=== PATIENT | male | born 1955 | race Caucasian/White ===

== ENCOUNTER 2017-12-14 17:39 | Inpatient (IN) ==
--- NOTE | 2017-12-14 17:48 | ED ---
HPI General Stated Complaint: Transfer for FH Time Seen by Provider: 12/14/17 17:42 Source: EMS Mode of arrival: EMS Related Data Allergies Allergy/AdvReac Type Severity Reaction Status Date / Time No Known Allergies Allergy Unverified 12/14/17 17:43 Review of Systems ROS Unobtainable ROS Unobtainable: unobtainable due to mental status PMFSH History History Provided By: Family Member Medical History Medical History Patient denies medical problems (Acute) Surgical History Surgical History No history of previous surgery (Acute) Discharge Plan Physicians Team ED Provider: Galindo Thomas ED Midlevel Provider: Jed Perry Status ED Status: With Doctor
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
[2017-12-14] MEDS ORDERED: HYDROmorphone PF Inj 0.5 MG/0.5 ML Syringe IV.PUSH PRN (18:40)
[2017-12-14] MEDS ORDERED: HYDROmorphone PF Inj 2 MG/ML Vial IV.PUSH PRN ×2 (18:45→21:30)
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
[2017-12-14 19:06] LABS: Baso # (Auto) 0.1 th/mm3 (0.0-0.2); Baso % (Auto) 0.9 % (0.0-2.0); Eos # (Auto) 0.2 th/mm3 (0.0-0.4); Eos % (Auto) 1.5 % (0.0-4.0); Hemoglobin 14.3 gm/dL (13.0-17.0); Lymph % (Auto) 17.5 % (9.0-44.0); Mean Corpuscular HGB Conc 33.9 % (32.0-36.0); Mean Corpuscular Hemoglobin 33.8 pg (27.0-34.0); Mean Corpuscular Volume 99.7 fL (80.0-100.0); Mean Platelet Volume 8.9 fL (7.0-11.0); Mono # (Auto) 0.9 th/mm3 (0.0-0.9); Mono % (Auto) 8.1 % (0.0-8.0); Neut # (Auto) 8.1 th/mm3 (1.8-7.7); Platelet Count 226 th/mm3 (150-450); Red Blood Count 4.21 mil/mm3 (4.50-5.90); Red Cell Distribution Width 14.1 % (11.6-17.2); White Blood Count 11.3 th/mm3 (4.0-11.0)
[2017-12-14 19:36] LABS: Alanine Aminotransferase 28 U/L (12-78)
[2017-12-14 19:40] LABS: Alkaline Phosphatase 55 U/L (45-117); Total Protein 7.6 g/dL (6.4-8.2); Troponin I 0.02 ng/mL (0.02-0.05)
[2017-12-14 19:43] LABS: Albumin 3.7 g/dL (3.4-5.0); Anion Gap 6 meq/L (5-15); Aspartate Aminotransferase 37 U/L (15-37); Blood Urea Nitrogen 14 mg/dL (7-18); Calcium 8.8 mg/dL (8.5-10.1); Carbon Dioxide 28.7 meq/L (21.0-32.0); Chloride 103 meq/L (98-107); Glomerular Filtration Rate 85 mL/min (>89); Glucose,Random 85 mg/dL (74-106); Sodium 138 meq/L (136-145)
[2017-12-14 19:44] LABS: Potassium 4.8 meq/L (3.5-5.1)
[2017-12-14 20:16] LABS: Activated Partial Thrombo Time 27.7 sec (24.3-30.1); INR 1.1 Ratio; Prothrombin Time 10.7 sec (9.8-11.6)
[2017-12-14] MEDS ORDERED: Docusate Sodium 100 MG Capsule PO SCH (21:00)
[2017-12-14] MEDS ORDERED: Chlorhexidine Gluconate 2% 1 Pack (2 Cloths) TOPICAL ONE (21:18)
[2017-12-14] MEDS ORDERED: Metoprolol Tartrate 25 MG Tablet PO ONE (21:18)
[2017-12-14] MEDS ORDERED: Sodium Chlor 0.9% Inj 500 ML IV.SIG SCH (22:00)
[2017-12-15] MEDS ORDERED: Chlorhexidine Gluconate 2% 1 Pack (2 Cloths) TOPICAL PRN (04:00)
[2017-12-15] MEDS ORDERED: Chlorhexidine Gluconate 2% 1 Pack (2 Cloths) TOPICAL SCH (04:00)
[2017-12-15 05:36] LABS: Baso # (Auto) 0.1 th/mm3 (0.0-0.2); Baso % (Auto) 0.8 % (0.0-2.0); Eos # (Auto) 0.1 th/mm3 (0.0-0.4); Eos % (Auto) 1.1 % (0.0-4.0); Hematocrit 38.5 % (39.0-51.0); Hemoglobin 12.7 gm/dL (13.0-17.0); Lymph # (Auto) 1.1 th/mm3 (1.0-4.8); Lymph % (Auto) 14.2 % (9.0-44.0); Mean Corpuscular HGB Conc 33.1 % (32.0-36.0); Mean Corpuscular Hemoglobin 33.6 pg (27.0-34.0); Mean Corpuscular Volume 101.7 fL (80.0-100.0); Mean Platelet Volume 8.4 fL (7.0-11.0); Mono # (Auto) 0.9 th/mm3 (0.0-0.9); Mono % (Auto) 11.6 % (0.0-8.0); Neut # (Auto) 5.5 th/mm3 (1.8-7.7); Neut % (Auto) 72.3 % (16.0-70.0); Platelet Count 184 th/mm3 (150-450); Red Blood Count 3.79 mil/mm3 (4.50-5.90); Red Cell Distribution Width 14.2 % (11.6-17.2); White Blood Count 7.6 th/mm3 (4.0-11.0)
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
[2017-12-15 06:21] LABS: Anion Gap 7 meq/L (5-15); Blood Urea Nitrogen 12 mg/dL (7-18); Calcium 8.6 mg/dL (8.5-10.1); Carbon Dioxide 30.9 meq/L (21.0-32.0); Chloride 103 meq/L (98-107); Glomerular Filtration Rate Greater Than 89 mL/min (>89); Glucose,Random 121 mg/dL (74-106); Potassium 3.9 meq/L (3.5-5.1); Sodium 141 meq/L (136-145)
[2017-12-15] MEDS ORDERED: Morphine Inj 4 MG/ML Vial IV.PUSH PRN (06:26)
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
[2017-12-15] MEDS ORDERED: Clindamycin Inj 600 MG/4 ML Vial ONE (07:26)
[2017-12-15] MEDS ORDERED: Phenylephrine/NS 1000 MCG/10ML Syringe IV.PUSH ONE (07:45)
[2017-12-15] MEDS ORDERED: Glycopyrrolate Inj 1 MG/5 ML Syringe IV.PUSH ONE (07:45)
[2017-12-15] MEDS ORDERED: Lidocaine PF 1% Inj 5 ML Syringe INFILTRATN ONE (07:45)
[2017-12-15] MEDS ORDERED: Neostigmine Inj 5 MG/5 ML Syringe IV.PUSH ONE (07:45)
[2017-12-15] MEDS ORDERED: Post-op Orders (for Pharmacy) OTHER STA (08:47)
--- NOTE | 2017-12-15 08:52 | P.OP ---
- Preoperative Diagnosis (1) Closed fracture of left fibula and tibia Date of procedure: 12/15/17 Procedure: Left tibia reduction and intramedullary nail fixation Anesthesia: GETA Surgeon: Walter Deras MD Roto Rooter Operator: GHANSHYAM Paniagua PA-C The surgical procedure was assisted by my physician senior agricultural assistant. My P.A. presence was necessary throughout this case for the manipulation and positioning of the surgical extremity. My P.A. was assisting me throughout the duration of this procedure. The skill set of a physician senior agricultural assistant was medically necessary to complete this procedure. During the surgical case the information technology associate was working at the back table and the physician senior agricultural assistant was directly assisting me. Operation and Findings: Implants: ITS [10]mm x [375]mm tibial nail Plan of activity: Nonweightbearing Patient was seen and examined preoperatively. An informed consent was obtained from patient after detailed discussion of risk and benefits. Risks of surgery include bleeding, infection, painful hardware, nonunion, malunion, leg length discrepancy, need for hardware removal, and medical complications associated with anesthesia including blood clots, stroke, heart attack, and were discussed. Operative site was marked. Patient was brought to the operating room placed on or table. Patient received IV antibiotics and was given IV sedation GETA. Operative leg was prepped with alcohol Hibiclens and draped in usual sterile fashion. Timeout procedure was performed Procedure began with reduction of fracture. The fracture was visualized under fluoroscopy. There appeared to be a vertical split down to the articular surface. The fracture was held reduced with fracture tenaculums. 2 4.0 candid screws were placed from anterior to posterior. Good compression was obtained. Traction was now applied. The fracture was manipulated and reduced. There was comminution of the fracture. Next a 3 cm incision was made proximal to the patella. Quadriceps tendon was split in line with fibers. Cannulas were placed in the patellofemoral joint to protect the articular surface at all times. A guidepin was placed into the tibia and advanced in the tibial canal. Fluoroscopy was used to confirm appropriate guidepin placement. An opening reamer was used to open the tibial canal. A ball-tipped guidewire was advanced down the tibial canal. Guidepin was passed across the fracture site into the center of the distal tibia. Fluoroscopy confirmed guidepin placement. The nail length was now measured. The fracture was now held in a reduced position and the canal was reamed. The canal was reamed up to appropriate size. A tibia nail was now selected. Next the nail was fully seated. Using perfect benton technique 4 distal interlocking screws were placed. Using the insertion handle as a guide 1 proximal interlocking screw was placed. Fluoroscopy confirmed excellent of fracture with well-placed hardware. Incisions and the knee joint were thoroughly irrigated with sterile saline. Fascia was closed with #1 Vicryl, subcutaneous tissues closed with 3-0 Vicryl and skin was closed with rosy. Sterile dressings were applied. Patient was awakened and transferred to recovery in stable condition.
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
[2017-12-15] MEDS ORDERED: Senna/Docusate Sodium 8.6/50 MG Tablet PO SCH (09:00)
[2017-12-15] MEDS ORDERED: Vancomycin Inj 1 GM/200 ML PIGGYBACK IV.SIG SCH (09:00)
[2017-12-15] MEDS ORDERED: fentaNYL Citrate Inj 100 MCG/2 ML Ampul ONE (09:20)
[2017-12-15] MEDS ORDERED: *morphine SULFATE 4 MG/ML PERIprocedure ONLY ONE (09:27)
[2017-12-15] MEDS: Lidocaine 5% Patch T-DERMAL SCH (11:42)
[2017-12-15] MEDS: Senna/Docusate Sodium 8.6/50 MG Tablet PO SCH ×2 (11:43→20:27)
[2017-12-15] MEDS: Calcium/Vitamin D 250/125 MG Tablet PO SCH ×3 (11:43→18:16)
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
--- NOTE | 2017-12-15 19:55 | XR ---
EXAM DATE: 12/15/2017 9:09 AM EDT AGE/SEX: 62 years / Male INDICATIONS: ORIF LT TIB. TRAUMA. CLINICAL DATA: This is the patient's initial encounter. Patient reports that signs and symptoms have been present for 1 day and indicates a pain score of Nonresponsive. MEDICAL/SURGICAL HISTORY: Non-responsive. Non-responsive. COMPARISON: No prior exams available for comparison. FINDINGS: 4 intraoperative spot images of the tibia and fibula. Tibia and fibula fractures are seen. Intramedul martha christofer and multiple transfixing screws seen in the tibia. Alignment is near-anatomic. CONCLUSION: Intraoperative images showing internal fixation hardware in place across tibia fracture. Fibular frac ture also noted. Electronically signed by: King Westfall MD 12/15/2017 7:53 PM EDT
[2017-12-15] MEDS: Vancomycin Inj 1,000 MG in Sodium Chlor 0.9% Inj 250 ML IV.SIG SCH (20:27)
--- NOTE | 2017-12-15 22:11 | ECG ---
Date Performed: 12/14/2017 Time Performed: 18:47:49 PTAGE: 62 years EKG: Sinus rhythm NORMAL ECG NO PREVIOUS TRACING DOCTOR: Jessica Bullard Interpretating Date/Time 12/15/2017 22:08:35
[2017-12-15] MEDS: Morphine Inj 4 MG/ML Vial IV.PUSH PRN (23:59)
[2017-12-16 04:48] LABS: Baso % (Auto) 0.4 % (0.0-2.0); Eos # (Auto) 0.1 th/mm3 (0.0-0.4); Eos % (Auto) 0.5 % (0.0-4.0); Hematocrit 37.7 % (39.0-51.0); Hemoglobin 12.6 gm/dL (13.0-17.0); Lymph # (Auto) 1.6 th/mm3 (1.0-4.8); Lymph % (Auto) 12.8 % (9.0-44.0); Mean Corpuscular HGB Conc 33.4 % (32.0-36.0); Mean Corpuscular Hemoglobin 33.9 pg (27.0-34.0); Mean Corpuscular Volume 101.6 fL (80.0-100.0); Mean Platelet Volume 8.2 fL (7.0-11.0); Mono # (Auto) 1.5 th/mm3 (0.0-0.9); Mono % (Auto) 12.5 % (0.0-8.0); Neut % (Auto) 73.8 % (16.0-70.0); Platelet Count 180 th/mm3 (150-450); Red Blood Count 3.71 mil/mm3 (4.50-5.90); White Blood Count 12.2 th/mm3 (4.0-11.0)
[2017-12-16 05:10] LABS: Anion Gap 7 meq/L (5-15); Blood Urea Nitrogen 11 mg/dL (7-18); Calcium 8.6 mg/dL (8.5-10.1); Carbon Dioxide 28.3 meq/L (21.0-32.0); Chloride 103 meq/L (98-107); Glomerular Filtration Rate Greater Than 89 mL/min (>89); Glucose,Random 114 mg/dL (74-106); Potassium 3.7 meq/L (3.5-5.1); Sodium 138 meq/L (136-145)
--- NOTE | 2017-12-16 06:59 | P.PNOP ---
Subjective Interval history: Comfortably in bed no new complaints. Physical Exam Vital signs: Vital Signs 12/15/17 09:15 12/15/17 09:30 12/15/17 09:50 Temperature 97.2 F L 97.3 F L 96.8 F L Pulse Rate 62 63 60 Respiratory Rate 15 16 16 Blood Pressure 118/67 120/60 147/70 H Pulse Oximetry 100 100 97 12/15/17 10:13 12/15/17 12:00 12/15/17 15:30 Temperature 97.8 F Pulse Rate 56 L 70 Respiratory Rate 16 18 20 Blood Pressure 145/70 H Pulse Oximetry 95 97 12/15/17 16:03 12/15/17 20:00 12/15/17 21:33 Temperature 98.5 F Pulse Rate 80 76 82 Respiratory Rate 18 18 16 Blood Pressure 154/72 H Pulse Oximetry 96 97 12/16/17 00:00 12/16/17 03:27 12/16/17 04:00 Temperature 97.9 F 97.9 F Pulse Rate 73 73 86 Respiratory Rate 18 18 18 Blood Pressure 176/78 H 173/79 H Pulse Oximetry 98 99 Intake & Output 12/15/17 12/15/17 12/16/17 06:59 18:59 06:59 Intake Total 1275 / 1275 1260 / 1260 930 / 930 Output Total 700 / 700 1150 / 1150 Balance 575 / 575 110 / 110 930 / 930 Weight 58.967 kg 58.967 kg Intake: IV 1200 / 1200 250 / 250 LR 1000 mL Inj 1,000 ML @ 100 1000 / 1000 mls/hr IV.CONT .Q10H [facility] Rx#: [id number] Ofirmev Inj 1,000 mg In 100 ml 200 / 200 @ 400 mls/hr IV.SIG Q6H [facility] Rx# :[id number] Vancomycin Inj 1,000 MG In NS 250 / 250 Inj 250 ML @ 250 mls/hr IV.SIG Q12H [facility] Rx#:[id number] Oral 75 / 75 960 / 960 680 / 680 Anesthesia Amount 300 / 300 Output: Urine 700 / 700 1100 / 1100 Estimated Blood Loss 50 / 50 Other: # Voids 970 Date of Last Bowel Movement 12/14/17 12/14/17 12/14/17 Narrative: Left lower extremity: No pain with hip range of motion. Clean dry dressings intact. Splint intact. Distally intact sensation with active movement of toes. Good capillary refills Results - Labs CBC & Chem 7: 12/16/17 04:23 12/16/17 04:23 Laboratory Results - last 24 hr 12/16/17 12/16/17 04:23 04:23 WBC 12.2 H RBC 3.71 L Hgb 12.6 L Hct 37.7 L MCV 101.6 H MCH 33.9 MCHC 33.4 RDW 14.0 Plt Count 180 MPV 8.2 Neut % (Auto) 73.8 H Lymph % (Auto) 12.8 [place] % (Auto) 12.5 H Eos % (Auto) 0.5 Baso % (Auto) 0.4 Neut # (Auto) 9.0 H Lymph # (Auto) 1.6 [place] # (Auto) 1.5 H Eos # (Auto) 0.1 Baso # (Auto) 0.0 WBC Differential . Differential Comment Auto diff final Sodium 138 Potassium 3.7 Chloride 103 Carbon Dioxide 28.3 Anion Gap 7 BUN 11 Creatinine 0.73 Estimated GFR Greater than 89 Random Glucose 114 H Calcium 8.6 Microbiology 12/14/17 18:25 Blood - Peripheral Aerobic Blood Culture - Preliminary No growth in 1 day 12/14/17 18:25 Blood - Peripheral Anaerobic Blood Culture - Preliminary No growth in 1 day 12/14/17 18:20 Blood - Peripheral Aerobic Blood Culture - Preliminary No growth in 1 day 12/14/17 18:20 Blood - Peripheral Anaerobic Blood Culture - Preliminary No growth in 1 day - Imaging Impressions Tibia/Fibula X-Ray 12/15/17 00:00 CONCLUSION: Intraoperative images showing internal fixation hardware in place across tibia fracture. Fibular fracture also noted. Assessment and Plan - Assessment and Plan Left distal tibia and fibula fracture status post IM nail POD 1 Maintain splint dressings Nonweightbearing left leg Calcium and vitamin D supplementation Physical therapy consultation Scout Romero, [place] Case management for discharge placement Follow-up with Dr. Tucker or PA in 2 weeks [facility] Prescription Drug Monitoring Database has been queried and verified prior to prescribing the controlled substance. Acute pain exception. This patient has normal, predicted, physiological, and time limited response to an adverse mechanical stimulus associated with surgery, trauma, or acute illness as described in my notes. There is a lack of alternative treatment options other than to include the prescribed narcotic treatment for this condition.
[2017-12-16] MEDS: Calcium/Vitamin D 250/125 MG Tablet PO SCH ×3 (10:49→18:10)
[2017-12-16] MEDS: Enoxaparin Inj 40 MG/0.4 ML Syringe SQ SCH (10:49)
[2017-12-16] MEDS: Lidocaine 5% Patch T-DERMAL SCH (10:50)
[2017-12-16] MEDS: Senna/Docusate Sodium 8.6/50 MG Tablet PO SCH ×2 (10:50→20:44)
[2017-12-16] MEDS: Vancomycin Inj 1,000 MG in Sodium Chlor 0.9% Inj 250 ML IV.SIG SCH (11:19)
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
[2017-12-16] MEDS ORDERED: Vancomycin Inj 1,000 MG in Sodium Chlor 0.9% Inj 250 ML IV.SIG SCH (12:00)
[2017-12-16] MEDS: Ketorolac Inj 30 MG/ML (IVP) Vial IV.PUSH SCH ×3 (12:06→23:49)
[2017-12-17] MEDS: Morphine Inj 4 MG/ML Vial IV.PUSH PRN (05:31)
[2017-12-17] MEDS: Ketorolac Inj 30 MG/ML (IVP) Vial IV.PUSH SCH ×3 (05:34→17:22)
[2017-12-17] MEDS: Calcium/Vitamin D 250/125 MG Tablet PO SCH ×3 (08:02→17:22)
[2017-12-17] MEDS: Lidocaine 5% Patch T-DERMAL SCH (08:02)
[2017-12-17] MEDS: Enoxaparin Inj 40 MG/0.4 ML Syringe SQ SCH (08:02)
[2017-12-17] MEDS: Senna/Docusate Sodium 8.6/50 MG Tablet PO SCH (08:02)
--- NOTE | 2017-12-17 10:26 | P.PNOP ---
Subjective Interval history: Resting comfortably with no new complaints. Physical Exam Vital signs: Vital Signs 12/16/17 12:00 12/16/17 15:41 12/16/17 16:00 Temperature 98.1 F 99.0 F Pulse Rate 46 L 69 92 H Respiratory Rate 16 18 14 Blood Pressure 131/64 167/84 H Pulse Oximetry 97 99 99 12/16/17 20:00 12/16/17 21:05 12/16/17 23:47 Temperature 97.9 F 99.1 F Pulse Rate 81 92 H 81 Respiratory Rate 15 16 14 Blood Pressure 134/61 143/65 H Pulse Oximetry 98 98 12/17/17 02:03 12/17/17 08:00 12/17/17 09:32 Temperature 98.9 F Pulse Rate 79 75 Respiratory Rate 14 16 16 Blood Pressure 143/67 H Pulse Oximetry 98 95 Intake & Output 12/16/17 12/17/17 12/17/17 18:59 06:59 18:59 Intake Total 1260 / 1260 Balance 1260 / 1260 Intake: Oral 1260 / 1260 Other: # Voids 4 Date of Last Bowel Movement 12/14/17 # Bowel Movements 1 Narrative: Left lower extremity: Clean dry dressings intact. Intact sensation distally in all his toes. Good capillary refills and active movement of all his toes Results - Labs CBC & Chem 7: 12/16/17 04:23 12/16/17 04:23 Microbiology 12/14/17 18:25 Blood - Peripheral Aerobic Blood Culture - Preliminary No growth in 2 days 12/14/17 18:25 Blood - Peripheral Anaerobic Blood Culture - Preliminary No growth in 2 days 12/14/17 18:20 Blood - Peripheral Aerobic Blood Culture - Preliminary No growth in 2 days 12/14/17 18:20 Blood - Peripheral Anaerobic Blood Culture - Preliminary No growth in 2 days Assessment and Plan - Assessment and Plan Left distal tibia and fibula fracture status post IM nail POD 2 Maintain splint dressings Nonweightbearing left leg Calcium and vitamin D supplementation Physical therapy consultation Scout Romero, MORE miles Case management for discharge placement ortho cleared when secure plan arranged Follow-up with Dr. Tucker or PA in 2 weeks [employer] Prescription Drug Monitoring Database has been queried and verified prior to prescribing the controlled substance. Acute pain exception. This patient has normal, predicted, physiological, and time limited response to an adverse mechanical stimulus associated with surgery, trauma, or acute illness as described in my notes. There is a lack of alternative treatment options other than to include the prescribed narcotic treatment for this condition.
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
[2017-12-17 12:49] VITALS: BP 121/58; TEMP 99.8; O2SAT 98
[2017-12-17 16:24] VITALS: PULSE 82; RESP 16
== END 2017-12-17 16:00 | disposition home or self-care (01) ==
LOC: NEPC 17:39 → NEDA 18:14 → N06 20:32
PROVIDERS: ADMIT Surgery Trauma Surgery; ATTEND Surgery Trauma Surgery